=== PATIENT | female | born 1985 | race Caucasian/White ===

== ENCOUNTER 2016-08-07 13:55 | Emergency (ER) | payer OTHER ==
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
== END 2016-08-07 15:22 | disposition home or self-care (01) ==
LOC: ER 13:55
DX: S80.01XA Contusion of right knee, initial encounter (principal); S16.1XXA Strain of muscle, fascia and tendon at neck level, initial encounter; V49.50XA Passenger injured in collision with unspecified motor vehicles in traffic accident, initial encounter